=== PATIENT | female | born 1990 | race Caucasian/White ===

== ENCOUNTER 2017-12-05 16:16 | Inpatient (IN) | payer OTHER ==
[~2017-12-05] VITALS: Ht 172.7 cm; Wt 68.6 kg
[~2017-12-05 16:16] MED LIST: ACETAMINOPHEN500 MG PO; ACYC400; Amoxicillin500 MG PO; Bactrim Ds Tab1 EACH PO; CYCL10 PO; Colace100 MG PO; HYDR1TAB94 PO; IBUP800 PO; Naprosyn500 MG PO; Norco 5-325 Ta1 EACH PO; PRENATAL; Pseudoephedrine30 MG PO; Pyridium200 MG PO; ROBITUSSIN COU118 M1 PO; Ultram50 MG PO; VENL25 PO; Veetids 500500 MG PO; Ventolin/Prove6.7 GM INH; Verotin-Gr Cap1 EACH PO; Vibramycin100 MG PO; Zithromax250 MG PO; Zofran Odt8 MG SL; Zovirax200 MG PO
[2017-12-05 16:31] LABS: Source, Urine Clean Catch
[2017-12-05 16:34] LABS: Appearance, Urine Hazy (Clear); Bilirubin, Urine Neg (Neg); Blood, Urine 5+ (Neg); Color, Urine Yellow (P-Yellow); Glucose Qualitative, Urine Neg (Neg); Ketones, Urine 2+ (Neg); Leukocyte Esterase, Urine 3+ (Neg); Nitrite, Urine Pos (Neg); Protein, Urine 2+ (Neg); Specific Gravity, Urine 1.015 (1.003-1.022); Urobilinogen, Urine 1+ (Normal); pH, Urine 6.5 (5.0-8.0)
[2017-12-05 16:57] LABS: Bacteria Many /hpf; Red Blood Cells, Urine 25-50 /hpf (0-2); Squamous Epithelial Cells Few /hpf (Few); White Blood Cells, Urine TNTC /hpf (0-5)
[2017-12-05 17:06] LABS: BASOPHILS ABSOLUTE AUTO 0.03 K/mm3 (0.00-0.23); BASOPHILS PERCENT AUTO 0 % (0-2); EOSINOPHILS ABSOLUTE AUTO 0.01 K/mm3 (0.00-0.68); EOSINOPHILS PERCENT AUTO 0 % (0-6); Hematocrit 38.2 % (33.0-51.0); Hemoglobin 12.9 g/dL (11.5-16.0); IMMATURE GRAN ABSOLUTE AUTO 0.09 K/mm3 (0.00-0.10); IMMATURE GRAN PERCENT AUTO 1 % (0-1); LYMPHOCYTES ABSOLUTE AUTO 0.78 K/mm3 (0.84-5.20); LYMPHOCYTES PERCENT AUTO 5 % (21-46); MONOCYTES ABSOLUTE AUTO 1.44 K/mm3 (0.16-1.47); MONOCYTES PERCENT AUTO 9 % (4-13); Mean Corpuscular HGB 32.1 pg (26.0-34.0); Mean Corpuscular HGB Conc 33.8 g/dL (31.5-36.5); Mean Corpuscular Volume 95 fL (80-100); Mean Platelet Volume 9.6 fL (9.1-12.4); NEUTROPHILS ABSOLUTE AUTO 14.51 K/mm3 (1.96-9.15); NEUTROPHILS PERCENT AUTO 86 % (41-73); Platelet Count 269 K/mm3 (150-400); RDW Coefficient Variation 12.7 % (11.7-14.2); RDW Standard Deviation 44.8 fL (35.1-46.3); Red Blood Cell Count 4.02 M/mm3 (3.80-5.20); White Blood Cell Count 16.86 K/mm3 (4.00-11.30)
[2017-12-05 17:25] LABS: Alanine Aminotransfer (ALT/SGP 14 U/L (12-78); Albumin, Blood 3.4 g/dL (3.4-5.0); Albumin/Globulin Ratio 0.9 (0.8-1.8); Alk Phos 78 U/L (50-136); Anion Gap 8 mmol/L (6-16); Aspartate Aminotrans (AST/SGOT 9 U/L (12-37); Blood Urea Nitrogen 11 mg/dL (8-24); CO2, Blood 26 mmol/L (21-32); Chloride, Blood 102 mmol/L (98-108); Creatinine, Blood 0.78 mg/dL (0.40-1.00); Globulin, Blood 3.7 g/dL (2.2-4.0); Glomerular Filtration Rate >60 (60-); Glucose, Blood 94 mg/dL (70-99); Potassium, Blood 3.8 mmol/L (3.5-5.5); Sodium, Blood 136 mmol/L (136-145); Total Protein, Blood 7.1 g/dL (6.4-8.2)
[2017-12-06 05:07] LABS: Hematocrit 44.1 % (33.0-51.0); Hemoglobin 14.1 g/dL (11.5-16.0); Mean Corpuscular HGB 31.5 pg (26.0-34.0); Mean Platelet Volume 9.7 fL (9.1-12.4); Platelet Count 257 K/mm3 (150-400); RDW Coefficient Variation 12.8 % (11.7-14.2); RDW Standard Deviation 46.5 fL (35.1-46.3); Red Blood Cell Count 4.47 M/mm3 (3.80-5.20); White Blood Cell Count 18.49 K/mm3 (4.00-11.30)
[2017-12-06 05:09] LABS: Mean Corpuscular Volume 99 fL (80-100)
[2017-12-07 04:44] LABS: Hematocrit 35.5 % (33.0-51.0); Hemoglobin 11.6 g/dL (11.5-16.0); Mean Corpuscular HGB 31.7 pg (26.0-34.0); Mean Corpuscular HGB Conc 32.7 g/dL (31.5-36.5); Mean Corpuscular Volume 97 fL (80-100); Mean Platelet Volume 9.9 fL (9.1-12.4); Platelet Count 217 K/mm3 (150-400); RDW Coefficient Variation 12.7 % (11.7-14.2); RDW Standard Deviation 45.8 fL (35.1-46.3); Red Blood Cell Count 3.66 M/mm3 (3.80-5.20); White Blood Cell Count 13.51 K/mm3 (4.00-11.30)
[2017-12-08 03:58] LABS: BASOPHILS ABSOLUTE AUTO 0.02 K/mm3 (0.00-0.23); BASOPHILS PERCENT AUTO 0 % (0-2); EOSINOPHILS ABSOLUTE AUTO 0.14 K/mm3 (0.00-0.68); EOSINOPHILS PERCENT AUTO 2 % (0-6); Hematocrit 33.8 % (33.0-51.0); Hemoglobin 11.1 g/dL (11.5-16.0); IMMATURE GRAN ABSOLUTE AUTO 0.02 K/mm3 (0.00-0.10); IMMATURE GRAN PERCENT AUTO 0 % (0-1); LYMPHOCYTES ABSOLUTE AUTO 1.61 K/mm3 (0.84-5.20); LYMPHOCYTES PERCENT AUTO 18 % (21-46); MONOCYTES ABSOLUTE AUTO 0.87 K/mm3 (0.16-1.47); MONOCYTES PERCENT AUTO 10 % (4-13); Mean Corpuscular HGB 31.7 pg (26.0-34.0); Mean Corpuscular HGB Conc 32.8 g/dL (31.5-36.5); Mean Corpuscular Volume 97 fL (80-100); Mean Platelet Volume 9.9 fL (9.1-12.4); NEUTROPHILS ABSOLUTE AUTO 6.11 K/mm3 (1.96-9.15); NEUTROPHILS PERCENT AUTO 70 % (41-73); Platelet Count 248 K/mm3 (150-400); RDW Coefficient Variation 12.9 % (11.7-14.2); RDW Standard Deviation 46.3 fL (35.1-46.3); White Blood Cell Count 8.77 K/mm3 (4.00-11.30)
[2017-12-08 04:16] LABS: Anion Gap 4 mmol/L (6-16); Blood Urea Nitrogen 7 mg/dL (8-24); Bun/Creatinine Ratio 9.9 (12.0-20.0); CO2, Blood 30 mmol/L (21-32); Calcium, Blood 8.4 mg/dL (8.5-10.1); Chloride, Blood 107 mmol/L (98-108); Creatinine, Blood 0.71 mg/dL (0.40-1.00); Glomerular Filtration Rate >60 (60-); Glucose, Blood 102 mg/dL (70-99); Potassium, Blood 3.9 mmol/L (3.5-5.5); Sodium, Blood 141 mmol/L (136-145)
[2017-12-08] MEDS ORDERED: ACET325 PO (10:44)
[2017-12-08] MEDS ORDERED: ACIDOPHILUS1 EAC1 PO (10:47)
[2017-12-08] MEDS ORDERED: ROXICODONE5 MG PO (10:48)
[2017-12-08] MEDS ORDERED: Imitrex50 MG PO (10:50)
[2017-12-08] MEDS ORDERED: CEFP200 PO (10:50)
== END 2017-12-08 12:09 | disposition home or self-care (01) | DRG 872 ==
LOC: ER 16:16 → MEDS 16:17 → ENPENDDIS 12-08 10:08 → MEDS 12-08 12:09
PROVIDERS: Internal Medicine; Nurse Practitioner Acute Care; Physician Assistant
DX: A41.9 Sepsis, unspecified organism (principal); N10 Acute pyelonephritis; F41.9 Anxiety disorder, unspecified; G43.909 Migraine, unspecified, not intractable, without status migrainosus; J45.909 Unspecified asthma, uncomplicated; F43.10 Post-traumatic stress disorder, unspecified; F32.9 Major depressive disorder, single episode, unspecified; F17.210 Nicotine dependence, cigarettes, uncomplicated
CPT/HCPCS: 36415; 80048; 80053; 81001; 83605; 85025; 85027; 87077; 87086; 87186; 96365; 96366; 96375; 99285-25; J0696; J0744; J1885; J2405; J2550; J2765; J3010; J7030; J7120

== ENCOUNTER 2021-03-22 08:27 | Emergency (ER) | payer SELFPAY ==
[~2021-03-22] VITALS: Ht 170.2 cm; Wt 61.2 kg
[~2021-03-22 08:27] MED LIST changes: +ACET325 PO; +ACIDOPHILUS1 EAC1 PO; +CEFP200 PO; +Imitrex50 MG PO; +ROXICODONE5 MG PO
[2021-03-22] MEDS ORDERED: AZIT250 PO (09:07)
== END 2021-03-22 09:27 | disposition home or self-care (01) ==
LOC: ER 08:27
DX: H66.92 Otitis media, unspecified, left ear (principal); J45.909 Unspecified asthma, uncomplicated; F17.210 Nicotine dependence, cigarettes, uncomplicated; Z88.8 Allergy status to other drugs, medicaments and biological substances; Z79.899 Other long term (current) drug therapy
CPT/HCPCS: 99282; A9270

== ENCOUNTER 2022-02-13 13:41 | Emergency (ER) | payer OTHER ==
[~2022-02-13] VITALS: Ht 170.2 cm; Wt 61.2 kg
[~2022-02-13 13:41] MED LIST changes: +AZIT250 PO
[2022-02-13] MEDS ORDERED: Cleocin HCl300 MG PO (15:08)
== END 2022-02-13 15:21 | disposition home or self-care (01) ==
LOC: ER 13:41
DX: L03.011 Cellulitis of right finger (principal); J45.909 Unspecified asthma, uncomplicated; F17.210 Nicotine dependence, cigarettes, uncomplicated; Z88.8 Allergy status to other drugs, medicaments and biological substances; Z88.1 Allergy status to other antibiotic agents
CPT/HCPCS: A9270

== ENCOUNTER 2022-03-18 14:30 | Emergency (ER) | payer OTHER ==
[~2022-03-18] VITALS: Ht 167.6 cm; Wt 61.2 kg
[~2022-03-18 14:30] MED LIST changes: +Cleocin HCl300 MG PO
[2022-03-18] MEDS ORDERED: AMOCLA875 PO (14:51)
== END 2022-03-18 14:51 | disposition home or self-care (01) ==
LOC: ER 14:30
DX: H66.92 Otitis media, unspecified, left ear (principal); F17.210 Nicotine dependence, cigarettes, uncomplicated; Z88.8 Allergy status to other drugs, medicaments and biological substances
CPT/HCPCS: 99283

== ENCOUNTER 2023-04-20 10:20 | Emergency (ER) | payer OTHER ==
[~2023-04-20] VITALS: Ht 170.2 cm; Wt 63.5 kg
[~2023-04-20 10:20] MED LIST changes: +AMOCLA875 PO; +Levaquin750 MG PO; +ONDA4ODT SL
[2023-04-20 10:32] VITALS: BP 128/94
== END 2023-04-20 12:31 | disposition home or self-care (01) ==
LOC: ER 10:20
DX: T71.9XXA Asphyxiation due to unspecified cause, initial encounter (principal); S10.0XXA Contusion of throat, initial encounter; S40.011A Contusion of right shoulder, initial encounter; Y04.8XXA Assault by other bodily force, initial encounter; Z88.8 Allergy status to other drugs, medicaments and biological substances; J45.909 Unspecified asthma, uncomplicated; F43.10 Post-traumatic stress disorder, unspecified; F17.210 Nicotine dependence, cigarettes, uncomplicated
CPT/HCPCS: 70360; 71046; 99283-25; A9270

== ENCOUNTER 2023-04-28 13:40 | Emergency (ER) | payer OTHER ==
[~2023-04-28] VITALS: Ht 180.3 cm; Wt 63.5 kg
[2023-04-28 14:00] VITALS: BP 145/103
[2023-04-28] MEDS ORDERED: POLYTRIM EYE DR10 M1 RIGHTEYE (14:03)
== END 2023-04-28 14:03 | disposition home or self-care (01) ==
LOC: ER 13:40
DX: H10.89 Other conjunctivitis (principal); F17.210 Nicotine dependence, cigarettes, uncomplicated; Z88.1 Allergy status to other antibiotic agents; Z88.8 Allergy status to other drugs, medicaments and biological substances
CPT/HCPCS: 99282

== ENCOUNTER 2024-11-08 22:41 | Emergency (ER) | payer OTHER ==
[~2024-11-08] VITALS: Ht 167.6 cm; Wt 74.8 kg
[~2024-11-08 22:41] MED LIST changes: +POLYTRIM EYE DR10 M1 RIGHTEYE
[2024-11-08 22:47] VITALS: BP 128/89
[2024-11-08] MEDS ORDERED: CYCL10 PO (23:59)
== END 2024-11-09 00:09 | disposition home or self-care (01) ==
LOC: ER 22:41
DX: T75.4XXA Electrocution, initial encounter (principal); M62.830 Muscle spasm of back; W86.0XXA Exposure to domestic wiring and appliances, initial encounter
CPT/HCPCS: 93005; 93010; 99283-25; A9270

== ENCOUNTER 2024-11-11 14:55 | Emergency (ER) | payer OTHER ==
[~2024-11-11] VITALS: Ht 167.6 cm; Wt 74.8 kg
[2024-11-11 15:37] VITALS: BP 137/118
[2024-11-11] MEDS ORDERED: HYDROcodone 5-APAP 325 TAB PO ONE (15:45)
[2024-11-11] MEDS ORDERED: HYDROCODONE-AC1 EA10 PO (17:16)
== END 2024-11-11 17:22 | disposition home or self-care (01) ==
LOC: ER 14:55
DX: S46.911A Strain of unspecified muscle, fascia and tendon at shoulder and upper arm level, right arm, initial encounter (principal); J45.909 Unspecified asthma, uncomplicated; F17.210 Nicotine dependence, cigarettes, uncomplicated; Z88.1 Allergy status to other antibiotic agents; Z88.8 Allergy status to other drugs, medicaments and biological substances; Z79.899 Other long term (current) drug therapy; X50.1XXA Overexertion from prolonged static or awkward postures, initial encounter
CPT/HCPCS: 73030; 99283-25; A9270